=== PATIENT | female | born 1985 | race Caucasian/White ===

== ENCOUNTER 2019-09-06 07:39 | Inpatient (IN) ==
[2019-09-06] MEDS ORDERED: OXYTOCIN 30 UNITS/500 ML BAG IV PRN ×3 (07:48→18:54)
[2019-09-06] MEDS: LACTATED RINGER'S 1,000 ML IV PRN ×3 (08:09→15:55)
--- NOTE | 2019-09-06 08:29 | History & Physical Report ---
Date of Service September 06, 2019 Assessment & Plan (1) Post-term : - Induction of labor with mechanical dilatation and pitocin administration per protocol. (2) Abnormal placenta affecting management of mother: - Noted as placental shelf on 07/04/19 ultrasound. Good growth. History of Present Illness Primary Care Provider: NO PCP Kristine is a 33 y/o female at 41 weeks by LMP (10/29/18) EDC 08/29/19; Comes in today for induction of labor due to postterm . The was remarkable for placental shelf noted by ultrasound, which was of no clinical significance. Had a reactive NST on 09/04. She had a cobb bulb placed on 09/05/19 for mechanical dilatation. Attended regular OB appointments. The patient is having contractions, which she can breathe and talk through. Labs: (09/06/19) Blood type: O positive (01/13/19) Antibody screen: Neg (01/13/19) H.5 Hct: 36.1 WBC: 10.67 Plt: 162 Rubella: Neg VDRL/RPR: Nonreactive Gonorrhea: Neg Chlamydia: Neg HIV: Neg Hep B: Neg HbSAg: Neg CF: Neg SMA: Neg GBS Neg Glucose 1 Hour 50 gm Load 92 mg/dl (06/06/19) & 116 (03/14/19) Allergies Allergy/AdvReac Type Severity Reaction Status Date / Time No Known Drug Allergies Allergy none Verified 09/06/19 07:48 Home Medications Home Medications Medication Instructions Recorded Confirmed Type vit no.089-hsgc-newem 1 tab PO DAILY 09/05/19 09/06/19 History [ Vitamin] Patient History Medical History Encounter for anatomic survey Hx of varicella No pertinent family history No pertinent past medical history Surgical History No pertinent past surgical history S/P wisdom tooth extraction [place] teeth removed Family History Mother Hypertension Father Diabetes Social History (Updated 01/07/19 @ 14:17 by Felicitas Johnson) Preferred Language: [place] Islander Communication Ability: Effective Food Beverage Attendant Required: No Beliefs That Will Affect Care: None marital status: marital status details: Emmanuel Humphreys ([phone] Current Living Situation: Spouse Current Living Situation Comment: lives with spouse, no pets current occupational status: employed current occupation: Teacher, [employer] Other Information That Helps Us Care for You: No Feels Safe at Home: Yes Safety Concerns: Feels Safe At This Time Smoking Status: Never smoker Second Hand Exposure: No ; Hx Alcohol Use: No (light) Hx Substance Use: No Physical Activity Frequency: 3-4 Times per Week Physical Activity Frequency Comment: for 1 hr Review of Systems Constitutional: denies fever, chills, sweat, headache Respiratory: denies shortness of breath, difficulty breathing Cardiac: denies chest pain, palpitations, chest pressure Breast: denies breast pain : denies dysuria Physical Exam Constitutional: WD/WN, vitals as above Respiratory: normal respiratory effort, lungs clear to auscultation Cardiovascular: RRR, no murmur, no edema Gastrointestinal (Abdomen): Gravid; FH: term; positive FHTs; EFW: 8lb; Vertex position; positive palpation of contractions. Psychiatric: A+Ox3, euthymic affect Genitourinary: Manual OB Exam: + cervical dilation 4 cm, + cervical effacement (75%) and + station -2 OB Exam Monitor Tracing: + external FHT monitor used, + external uterine monitor used, + category I and + normal FHT variability per Dr. Breaux Results & Data Vital Signs (Past 12 Hours) Vital Signs Temp Pulse Resp BP 09/06/19 07:44 77 121/82 09/06/19 07:43 36.7 C 20 Code Status & VTE Plan VTE Prophylaxis Plan VTE Prophylaxis will be ordered: Yes Supervising Physician Co-Signing Physician Notes Resident Physician Supervision Note: I was present with Dr. Steel during the history and exam. I discussed the case with the resident and agree with the findings and plan as documented in the note. Any exceptions or clarifications are listed here: at 41 weeks for postdates induction, plan pitocin and anticipate Documented By: Miles Breaux Jr, MD, FACOG
[2019-09-06 08:39] LABS: Hematocrit (blood only) 36.1 % (37-47); Hemoglobin 12.5 g/dL (12.0-16.0); Mean Corpuscular Hemoglobin 29.6 pg (25-34); Mean Corpuscular Volume 85.5 fL (80-100); Mean Platelet Volume 9.8 fL (7.4-10.4); Platelet Count 162 K/uL (130-400); RDW Coefficient of Variation 13.3 % (11.5-14.5); RDW Standard Deviation 41.5 fL (36.4-46.3); Red Blood Count 4.22 M/uL (4.2-5.4); White Blood Count 10.67 K/uL (4.8-10.8)
[2019-09-06 08:47] LABS: Mean Corpuscular Hgb Conc 34.6 g/dL (32-36)
[2019-09-06] MEDS ORDERED: ePHEDrine sulfate 50 MG/ML AMP ONE (11:07)
[2019-09-06] MEDS ORDERED: BUPIVACAINE 0.25% 30 ML VIAL ONE (11:08)
[2019-09-06] MEDS ORDERED: fentaNYL 2MCG/ML ROPIV 1.25MG/ML 100 ML BAG EPI ONE (11:08)
[2019-09-06] MEDS ORDERED: fentaNYL citrate 100 MCG/2 ML VIAL ONE (11:08)
--- NOTE | 2019-09-06 11:22 | Anesthesiology Consultation ---
Date of Service September 06, 2019 Assessment & Plan (1) Encounter for pre-operative examination: Chart Review Chart Review: Acceptable Risk for Labor Epidural History Height/Weight Height: 5 ft 2 in Weight: 81.647 kg Allergies Allergy/AdvReac Type Severity Reaction Status Date / Time No Known Drug Allergies Allergy none Verified 09/06/19 07:48 Medications Home Medications Medication Instructions Recorded Confirmed Last Taken vit no.263-jrdw-aarhv 1 tab PO DAILY 09/05/19 09/06/19 09/05/19 10:00 [ Vitamin] Active Medications Generic Name Dose Route Start Last Admin Trade Name Freq PRN Reason Stop Dose Admin Lactated Ringer's 1,000 mls @ 125 mls/hr 09/06/19 07:48 09/06/19 11:13 Lr IV 09/08/19 07:47 999 mls/hr .Q8H PRN Infusion L&D Protocol Protocol Oxytocin 30 units in 500 mls @ 9 mls/hr 09/06/19 07:48 09/06/19 11:00 Pitocin IV 09/08/19 07:47 0.54 units/hr .Q24H PRN 9 mls/hr Labor Induction/Augmentation Titration Protocol 0.54 UNITS/HR Past Medical History Medical History Encounter for anatomic survey Hx of varicella No pertinent family history No pertinent past medical history Past Family History Family History Mother Hypertension Father Diabetes Past Surgical History Surgical History No pertinent past surgical history S/P wisdom tooth extraction [place] teeth removed Social History Smoking Status: Never smoker Hx Alcohol Use: No (light) Hx Substance Use: No Physical Exam Vital Signs Last Vital Signs Temp 36.6 C 09/06/19 11:04 Pulse 75 09/06/19 11:20 Resp 20 09/06/19 11:04 BP 128/95 09/06/19 11:04 Pulse Ox 98 09/06/19 11:20 Testing Laboratory Results 09/06/19 08:27
[2019-09-06] MEDS ORDERED: fentaNYL 2MCG/ML ROPIV 1.25MG/ML 100 ML BAG EPI PRN (11:49)
[2019-09-06] MEDS ORDERED: ePHEDrine sulfate 50 MG/ML AMP IV PRN (11:49)
[2019-09-06] MEDS ORDERED: ONDANSETRON INJ 2 MG/ML 2 ML VIAL IV PRN (11:49)
[2019-09-06] MEDS ORDERED: NALOXONE HCL 1 MG in SODIUM CHLORIDE 0.9% 1000ML 1,000 ML IV PRN (11:49)
[2019-09-06] MEDS ORDERED: NALOXONE HCL 0.4 MG/1 ML VIAL/CARP IV PRN (11:49)
--- NOTE | 2019-09-06 13:09 | Labor Progress Brief Note ---
Date of Service September 06, 2019 Subjective Reason For Note: Routine Evaluation Assessment & Plan (1) Post-term : - tracing Cat II, moderate variability with accels - pt comfortable with epidural - continue induction Admission and Anticipated Discharge Date Admission Date: September 06, 2019 Physical Exam Genitourinary: Cervix: 6/80/-2, AROM, clear, IUPC placed Results & Data ([facility]) Vital Signs (Past 12 Hours) Vital Signs Temp Pulse Resp BP Pulse Ox 09/06/19 13:05 70 95 09/06/19 13:01 81 98/60 L 09/06/19 13:00 65 97 09/06/19 12:55 64 97 09/06/19 12:50 70 97 09/06/19 12:45 75 105/65 97 09/06/19 12:44 81 104/62 09/06/19 12:42 66 109/69 09/06/19 12:40 65 108/64 97 09/06/19 12:38 77 108/66 09/06/19 12:36 71 106/71 09/06/19 12:35 69 99 09/06/19 12:34 62 106/63 09/06/19 12:32 75 108/65 09/06/19 12:30 66 20 108/65 100 09/06/19 12:28 67 105/66 09/06/19 12:26 71 104/65 09/06/19 12:25 71 100 09/06/19 12:24 67 102/66 09/06/19 12:22 57 L 90/60 L 09/06/19 12:20 62 88/57 L 100 09/06/19 12:18 62 94/61 L 09/06/19 12:16 58 L 91/54 L 09/06/19 12:15 58 L 99 09/06/19 12:14 68 90/51 L 09/06/19 12:12 97.7 F 66 20 90/55 L 09/06/19 12:10 67 91/54 L 95 09/06/19 12:08 70 94/54 L 09/06/19 12:07 61 104/75 09/06/19 12:05 66 94 09/06/19 12:02 74 110/75 09/06/19 12:00 68 20 107/64 97 09/06/19 11:58 69 108/70 09/06/19 11:56 67 109/69 09/06/19 11:55 69 20 96 09/06/19 11:54 70 114/78 93 09/06/19 11:52 70 110/75 09/06/19 11:50 69 113/75 97 09/06/19 11:48 69 111/73 09/06/19 11:46 71 126/89 09/06/19 11:45 72 99 09/06/19 11:44 63 20 125/84 09/06/19 11:40 81 97 09/06/19 11:35 78 96 09/06/19 11:30 79 99 09/06/19 11:25 77 100 09/06/19 11:20 75 98 09/06/19 11:04 97.9 F 78 20 128/95 09/06/19 10:01 90 111/74 09/06/19 08:56 75 122/79 09/06/19 07:44 77 121/82 09/06/19 07:43 98.1 F 20 Coding Level of Care Code None Diagnoses Post-term O48.0
--- NOTE | 2019-09-06 18:24 | Delivery Summary ---
Vaginal Delivery Summary Date of Service September 06, 2019 Vaginal Delivery Summary Findings: Viable female with Apgars of 9 and 10. Baby delivered over a midline second-degree laceration. Cord gases and cord blood samples obtained. Placenta delivered spontaneously and sent for pathological evaluation. Estimated blood loss 300 cc Labor note: Kristine is a 33 y/o female at 41 weeks by LMP (10/29/18) EDC 08/29/19; Comes in today for induction of labor due to postterm . The was remarkable for placental shelf noted by ultrasound, which was of no clinical significance. Had a reactive NST on 09/04. She had a cobb bulb placed on 09/05/19 for mechanical dilatation. Attended regular OB appointments. The patient is having contractions, which she can breathe and talk through. Labs: (09/06/19) Blood type: O positive (01/13/19) Antibody screen: Neg (01/13/19) H.5 Hct: 36.1 WBC: 10.67 Plt: 162 Rubella: Neg VDRL/RPR: Nonreactive Gonorrhea: Neg Chlamydia: Neg HIV: Neg Hep B: Neg HbSAg: Neg CF: Neg SMA: Neg GBS Neg Glucose 1 Hour 50 gm Load 92 mg/dl (06/06/19) & 116 (03/14/19) Upon admission the cervical Cobb catheter was removed and the cervix was 3 to 4 cm dilated 50% effaced and -2 station. Pitocin was initiated per induction protocol. Patient progressed into a regular labor pattern and anesthesia was consulted and an epidural was placed. The patient progressed to 6 cm and had artificial rupture of membranes for clear fluid. Intrauterine pressure catheter was placed and Pitocin was titrated to achieve adequate labor. Patient progressed to full dilatation and began her second stage. She pushed for approximately 30 minutes delivering the viable female infant. Cord blood samples and cord gas samples were obtained. Placenta was delivered spontaneously and sent for pathological evaluation. Inspection of the perineum showed a midline second-degree laceration. This was repaired with 4-0 Vicryl. Estimated blood loss was 300 cc. Sponge and needle count was correct.
[2019-09-06 18:33] LABS: Base Excess Cord Arterial Bld -2.6 mEq/L (-9-1.8); CO2 Cord Arterial Blood 50 mmHg (39.1-73.5); HCO3 Cord Arterial Blood 24 mmol/L (19.7-28.5); PO2 Cord Arterial Blood 24 mmHg (4.1-31.7)
[2019-09-06 18:41] LABS: Base Excess Cord Venous Blood -1.3 mEq/L (-7.7-1.9); Cord Venous Blood HCO3 23 mmol/L (18.4-26.8); Cord Venous Blood PCO2 37 mmHg (30.4-57.2); Cord Venous Blood PO2 30 mmHg (14.1-43.3); Cord Venous Blood pH 7.41 (7.20-7.44)
[2019-09-06 18:42] LABS: Oxygen Sat Cord Arterial Blood < 60.0 % (<60)
[2019-09-06] MEDS ORDERED: ACETAMINOPHEN W/CODEINE #3 1 TAB PO PRN (18:54)
[2019-09-06] MEDS ORDERED: DIPHTHERIA/TETANUS/PERTUSSIS 0.5 ML SYR/VIAL IM ONE (18:54)
[2019-09-06] MEDS ORDERED: SUPERCREAM 0.870% 15 GM JAR EXT PRN (18:54)
[2019-09-06] MEDS ORDERED: ACETAMINOPHEN 325 MG TAB PO PRN (18:54)
[2019-09-06] MEDS ORDERED: BENZOCAINE 20% AER SPR 82.5 GM CAN EXT PRN (18:54)
[2019-09-06] MEDS ORDERED: HYDROCORTISONE ACETATE 25 MG SUPP PR PRN (18:54)
--- NOTE | 2019-09-06 18:58 | Anesthesia Procedure Note ---
Date of Service September 06, 2019 Anesthesia Post Epidural Note Vital Signs Vital Signs: Temp Pulse Resp BP Pulse Ox 36.7 C 75 20 116/65 98 09/06/19 16:00 09/06/19 18:47 09/06/19 18:45 09/06/19 18:47 09/06/19 18:10 Pain Intensity Abdomen: Pain Intensity: 0 Notes Mental Status: alert / awake / arousable and participated in evaluation Nausea / Vomiting: adequately controlled Pain: adequately controlled Airway Patency, RR, SpO2: stable & adequate BP & HR: stable & adequate Hydration State: stable & adequate Neuraxial Anesthesia: was administered and sensory block is resolving Anesthetic Complications: no major complications apparent Epidural: Removed without complications and With tip intact
[2019-09-06] MEDS: IBUPROFEN 600 MG TAB PO PRN (19:29)
[2019-09-06] MEDS: DOCUSATE SODIUM 100 MG CAP PO SCH (20:42)
--- NOTE | 2019-09-07 07:19 | Obstetrical Progress Note ---
Date of Service <Gagan Bhatia MD - Last Filed: 09/07/19 07:19> September 07, 2019 Assessment & Plan <Gagan Bhatia MD - Last Filed: 09/07/19 07:19> (1) Post-term : PPD #1 Doing well, ambulating well, voiding well, tolerating oral intake. Continue routine care. After discharge will have follow-up in 6 weeks. Subjective <Gagan Bhatia MD - Last Filed: 09/07/19 07:19> Kristine is a 33 y/o female ; PPD #1 following spontaneous vaginal delivery at 41 weeks; doing well this morning; light abdominal cramping & 2/10 pain well managed with analgesics; voiding well; tolerating meals overnight and able to ambulate some; some persistent spotting with improvement this morning. Review of Systems Constitutional: denies fever, chills, sweat, headache Respiratory: denies shortness of breath, difficulty breathing Cardiac: denies chest pain, palpitations, chest pressure Breast: denies breast pain : denies dysuria Physical Exam <Gagan Bhatia MD - Last Filed: 09/07/19 07:19> General: Alert, oriented. No acute distress. Cardiac: Regular rate and rhythm, no murmurs/rubs/gallops. Respiratory: Clear to auscultation bilaterally a/p, no wheezes/rales/rhonchi. No increased work of breathing. Symmetrical chest rise. No respiratory distress. Abdomen: Soft, nontender, nondistended. Bowel sounds present. Uterus: Uterine fundus firm, palpable 1cm below umbilicus. Lower Extremities: No lower extremity edema or swelling. No deep calf pain. Elenita's negative bilaterally. Results & Data <Gagan Bhatia MD - Last Filed: 09/07/19 07:19> Vital Signs (Past 12 Hours) Vital Signs Temp Pulse Pulse Resp BP BP Pulse Ox 09/07/19 04:30 36.7 C 63 18 116/75 09/06/19 23:30 36.6 C 66 18 101/65 09/06/19 20:45 36.8 C 82 20 102/66 98 09/06/19 20:15 36.9 C 93 H 16 111/72 09/06/19 20:00 88 109/76 09/06/19 19:45 94 H 18 111/79 09/06/19 19:30 92 H 111/75 <Miles Breaux Jr, MD, FACOG - Last Filed: 09/07/19 07:52> Co-Signing Physician Notes Resident Physician Supervision Note: I was present with Dr. Chanel during the history and exam. I discussed the case with the resident and agree with the findings and plan as documented in the note. Any exceptions or clarifications are listed here: Doing well, discussed delivery, routine care. Documented By: Miles Breaux Jr, MD, FACOG
[2019-09-07] MEDS: DOCUSATE SODIUM 100 MG CAP PO SCH ×2 (08:59→21:31)
[2019-09-07] MEDS: PRENATAL VITAMIN 1 TAB PO SCH (08:59)
[2019-09-07] MEDS: FERROUS SULFATE 325 MG TAB PO SCH (08:59)
[2019-09-07] MEDS: IBUPROFEN 600 MG TAB PO PRN (09:02)
[2019-09-07] MEDS ORDERED: bisacodyL 5 MG TABEC PO SCH (20:00)
[2019-09-08 06:03] LABS: Hematocrit (blood only) 33.4 % (37-47)
--- NOTE | 2019-09-08 06:30 | Obstetrical Progress Note ---
Date of Service <Gagan Bhatia MD - Last Filed: 09/08/19 07:18> September 08, 2019 Assessment & Plan <Gagan Bhatia MD - Last Filed: 09/08/19 07:18> (1) Post-term : PPD #2 Doing well, ambulating well, voiding well, tolerating oral intake. Continue routine care. After discharge will have follow-up in 6 weeks. Subjective <Gagan Bhatia MD - Last Filed: 09/08/19 07:18> Kristine is a 33 y/o female ; PPD #2 following spontaneous vaginal delivery at 41 weeks; doing well this morning; light abdominal cramping & 2/10 pain well managed on analgesics; voiding well; tolerating meals overnight and able to ambulate some; some persistent spotting with some improvement this morning. She says she is ready to go home today. Review of Systems Constitutional: denies fever, chills, sweat, headache Respiratory: denies shortness of breath, difficulty breathing Cardiac: denies chest pain, palpitations, chest pressure Breast: denies breast pain : denies dysuria Physical Exam <Gagan Bhatia MD - Last Filed: 09/08/19 07:18> General: Alert, oriented. No acute distress. Cardiac: Regular rate and rhythm, no murmurs/rubs/gallops. Respiratory: Clear to auscultation bilaterally a/p, no wheezes/rales/rhonchi. No increased work of breathing. Symmetrical chest rise. No respiratory distress. Abdomen: Soft, nontender, nondistended. Bowel sounds present. Uterus: Uterine fundus firm, palpable 2cm below umbilicus. Lower Extremities: No lower extremity edema or swelling. No deep calf pain. Elenita's negative bilaterally. Results & Data <Gagan Bhatia MD - Last Filed: 09/08/19 07:18> Vital Signs (Past 12 Hours) Vital Signs Temp Pulse Resp BP 09/07/19 20:30 36.7 C 93 H 16 122/80 <Miguel Keene MD, FACOG - Last Filed: 09/08/19 07:51> Co-Signing Physician Notes Resident Physician Supervision Note: I was present with Dr. Farah during the history and exam. I discussed the case with the resident and agree with the findings and plan as documented in the note. Any exceptions or clarifications are listed here: [None] Documented By: Miguel Keene MD, FACOG Resident Activity Tracking <Gagan hBatia MD - Last Filed: 09/08/19 07:18> Resident Involvement: Resident Care Provided Care Provided: OB Delivery
[2019-09-08] MEDS: DOCUSATE SODIUM 100 MG CAP PO SCH (08:05)
[2019-09-08] MEDS: FERROUS SULFATE 325 MG TAB PO SCH (08:06)
[2019-09-08] MEDS: PRENATAL VITAMIN 1 TAB PO SCH (08:06)
== END 2019-09-08 16:30 | disposition home or self-care (01) | DRG 807 ==
LOC: 4S1 07:39 → 4S2 20:35

== ENCOUNTER 2021-07-27 01:20 | Inpatient (IN) ==
[2021-07-27] MEDS ORDERED: ePHEDrine sulfate 50 MG/ML AMP ONE (02:00)
[2021-07-27] MEDS ORDERED: fentaNYL citrate 100 MCG/2 ML VIAL ONE (02:00)
[2021-07-27] MEDS ORDERED: BUPIVACAINE 0.25% 30 ML VIAL ONE (02:00)
[2021-07-27] MEDS ORDERED: SODIUM CHLORIDE 0.9% INJ 10 ML VIAL ONE (02:00)
[2021-07-27] MEDS ORDERED: fentaNYL 2MCG/ML ROPIVACAINE 1.25MG/ML 100 ML BAG EPI ONE (02:01)
[2021-07-27] MEDS: LACTATED RINGER'S 1,000 ML IV PRN ×2 (02:05→03:05)
[2021-07-27] MEDS ORDERED: ONDANSETRON INJ 2 MG/ML 2 ML VIAL IV PRN (02:08)
[2021-07-27] MEDS ORDERED: ePHEDrine sulfate 50 MG/ML AMP IV PRN (02:08)
[2021-07-27] MEDS ORDERED: NALBUPHINE HCL INJ 10 MG/ML AMP IV PRN (02:08)
[2021-07-27] MEDS ORDERED: NALOXONE HCL 1 MG in SODIUM CHLORIDE 0.9% 1000ML 1,000 ML IV PRN (02:08)
[2021-07-27] MEDS ORDERED: diphenhydrAMINE 50 MG/ML VIAL IV PRN (02:08)
[2021-07-27] MEDS ORDERED: fentaNYL 2MCG/ML ROPIVACAINE 1.25MG/ML 100 ML BAG EPI PRN (02:08)
[2021-07-27] MEDS ORDERED: NALOXONE HCL 0.4 MG/1 ML VIAL/CARP IV PRN (02:08)
--- NOTE | 2021-07-27 02:10 | Anesthesiology Consultation ---
Date of Service July 27, 2021 Assessment & Plan (1) Encounter for pre-operative examination: Chart Review Chart Review: Patient NOT seen in Pre Admission Testing and Acceptable Risk for Labor Epidural Consults Requested none History Height/Weight Height: 5 ft 2 in Weight: 83.007 kg Allergies Allergy/AdvReac Type Severity Reaction Status Date / Time No Known Drug Allergies Allergy none Verified 07/27/21 01:44 Medications Home Medications Medication Instructions Recorded Confirmed Last Taken vits no.124-ferrous fum 1 tab PO DAILY 09/05/19 07/27/21 07/26/21 27 mg iron-folic acid 800 mcg tablet ( Vitamin) Past Medical History Medical History Abnormal placenta affecting management of mother Encounter for anatomic survey Encounter for pre-operative examination Hx of varicella No pertinent family history No pertinent past medical history Post-term Supervision of normal intrauterine in primigravida Exercise / Class Metabolic Activity II 4-5 Yardwork/Stairs/Walk up hill Past Family History Family History Mother Hypertension Father Diabetes Grandfather (Paternal) Prostate cancer Grandfather (Maternal) Prostate cancer Denies family history of Ovarian cancer Myocardial infarction Breast cancer Colorectal cancer Past Surgical History Surgical History No pertinent past surgical history S/P wisdom tooth extraction [place] teeth removed Past Anesthesia History No Hx of Anesthesia Complications and No Family Hx of Anesthesia Complications History of PONV No Hx of PONV and No Hx of Motion Sickness Social History Smoking Status: Never smoker Hx Alcohol Use: No (light) Hx Substance Use: No Physical Exam Vital Signs Last Vital Signs Temp 36.4 C L 07/27/21 01:46 Pulse 76 07/27/21 02:09 Resp 18 07/27/21 01:46 BP 122/73 07/27/21 01:37 Pulse Ox 95 07/27/21 02:09
[2021-07-27 02:25] LABS: Hemoglobin 13.1 g/dL (12.0-16.0); Mean Corpuscular Hemoglobin 30.5 pg (25-34); Mean Corpuscular Hgb Conc 35.4 g/dL (32-36); Mean Corpuscular Volume 86.2 fL (80-100); Mean Platelet Volume 10.1 fL (7.4-10.4); Platelet Count 185 K/uL (130-400); RDW Coefficient of Variation 13.9 % (11.5-14.5); RDW Standard Deviation 43.7 fL (36.4-46.3); Red Blood Count 4.29 M/uL (4.2-5.4); White Blood Count 10.73 K/uL (4.8-10.8)
--- NOTE | 2021-07-27 03:07 | History & Physical Report ---
Date of Service July 27, 2021 Assessment & Plan (1) Encounter for supervision of normal in multigravida, antepartum: Plan: IUP at term in active labor GBS -neg epidural requested on admission anticipate vaginal Admission and Anticipated Discharge Date Admission Date: July 27, 2021 History of Present Illness Primary Care Provider: NO PCP Patient is a 35 yo female EDC 07/26/21 who presents at 40 1/7 weeks with regular contractions for the last 2 hours. No SPROM or bloody show. She had been having irregular contractions for most of the day today. has been uncomplicated. GBS - Negative Allergies Allergy/AdvReac Type Severity Reaction Status Date / Time No Known Drug Allergies Allergy none Verified 07/27/21 01:44 Home Medications Medication Instructions Recorded Confirmed Type vits no.124-ferrous fum 1 tab PO DAILY 09/05/19 07/27/21 History 27 mg iron-folic acid 800 mcg tablet ( Vitamin) Patient History Medical History Abnormal placenta affecting management of mother Encounter for anatomic survey Encounter for pre-operative examination Hx of varicella No pertinent family history No pertinent past medical history Post-term Supervision of normal intrauterine in primigravida Surgical History No pertinent past surgical history S/P wisdom tooth extraction [place] teeth removed Family History Mother Hypertension Father Diabetes Grandfather (Paternal) Prostate cancer Grandfather (Maternal) Prostate cancer Denies family history of Ovarian cancer Myocardial infarction Breast cancer Colorectal cancer Social History (Updated 11/28/20 @ 14:25 by Irasema Dennis) Smoking Status: Never smoker Second Hand Exposure: No; Hx Alcohol Use: No (light) Hx Substance Use: No Preferred Language: Pashto Communication Ability: Effective Shoe Fitter Required: No Beliefs That Will Affect Care: None marital status: marital status details: Emmanuel Humphreys (35) [phone] Current Living Situation: Spouse Current Living Situation Comment: House with and daughter current occupational status: employed current occupation: Teacher, [employer] Other Information That Helps Us Care for You: No Feels Safe at Home: Yes Safety Concerns: Feels Safe At This Time Physical Activity Frequency: 3-4 Times per Week Physical Activity Frequency Comment: for 1 hr Assistive Devices: None Review of Systems All systems reviewed & are unremarkable except as noted in HPI & below Physical Exam Constitutional: WD/WN, vitals as above Psychiatric: A+Ox3, euthymic affect Genitourinary: OB Exam Abdomen: + vertex, + estimated weight (7-8 pounds) and + regular contractions (Q 4-5 minutes- moderate) Manual OB Exam: + cervical dilation 7 cm, + cervical effacement 10% and + station -2 Results & Data ([facility]) Vital Signs (Past 12 Hours) Vital Signs Temp Pulse Resp BP Pulse Ox 07/27/21 02:59 70 107/70 07/27/21 02:58 64 102/61 07/27/21 02:56 68 99 07/27/21 02:53 65 110/62 07/27/21 02:51 65 110/72 07/27/21 02:49 69 107/63 99 07/27/21 02:47 74 115/70 07/27/21 02:45 70 94/64 L 07/27/21 02:44 72 97 07/27/21 02:43 75 96/61 L 07/27/21 02:41 75 111/75 07/27/21 02:39 75 107/67 100 07/27/21 02:37 81 114/73 07/27/21 02:34 86 99 07/27/21 02:29 86 100 07/27/21 02:24 78 95 07/27/21 02:19 79 96 07/27/21 02:18 79 94 07/27/21 02:14 78 95 07/27/21 02:09 76 95 07/27/21 01:46 97.5 F L 18 07/27/21 01:37 97.5 F L 76 18 122/73 Code Status & VTE Plan VTE Prophylaxis Plan VTE Prophylaxis will be ordered: No Coding Level of Care Code None Diagnoses Encounter for supervision of normal in multigravida, antepartum Z34.80
[2021-07-27] MEDS: OXYTOCIN 30 UNITS/500 ML BAG IV PRN ×2 (04:07→04:39)
[2021-07-27] MEDS ORDERED: bisacodyL 10 MG SUPP PR PRN (04:26)
[2021-07-27] MEDS ORDERED: HYDROCORTISONE ACETATE 25 MG SUPP PR PRN (04:26)
[2021-07-27] MEDS ORDERED: oxyCODONE/ACETAMINOPHEN 5mg/325mg TAB PO PRN (04:26)
[2021-07-27] MEDS ORDERED: ACETAMINOPHEN 325 MG TAB PO PRN (04:26)
[2021-07-27] MEDS ORDERED: DIPHTHERIA/TETANUS/PERTUSSIS 0.5 ML SYR/VIAL IM ONE (04:26)
[2021-07-27] MEDS ORDERED: OXYTOCIN 30 UNITS/500 ML BAG IV PRN (04:26)
[2021-07-27] MEDS ORDERED: BENZOCAINE 20% AER SPR 82.5 GM CAN EXT PRN (04:26)
[2021-07-27] MEDS: IBUPROFEN 600 MG TAB PO PRN ×3 (04:39→22:24)
--- NOTE | 2021-07-27 04:56 | Delivery Summary ---
Vaginal Delivery Summary Date of Service July 27, 2021 Vaginal Delivery Summary and 1st Degree LAC Patient is a 35-year-old 2 para 1-0-0-1 female EDC of 07/26/2021 who presents at 40-1/7 weeks in active labor. She requested epidural analgesia which was moderately effective. Amniotic membranes were ruptured for clear fluid at 7 cm dilated. She progressed quickly to full dilation. She pushed effectively through 2 contractions for delivery of a viable male infant over intact perineum. There was a tight nuchal cord and this was clamped and cut prior to delivery device the infant. The infant was placed on the mother's abdomen for further attention and drying. He was spontaneously crying and moving all 4 limbs. After cord blood was obtained, the placenta was expressed intact with a three-vessel cord. First-degree perineal laceration was repaired with 3-0 chromic in the usual fashion. Estimated blood loss was 200 cc. bleeding was controlled with dilute Pitocin and fundal massage. Mother and baby were doing well post delivery. [facility] Vaginal Delivery Charge Delivery Type Details: and 1st Degree LAC
[2021-07-27] MEDS: DOCUSATE SODIUM 100 MG CAP PO SCH ×2 (09:19→20:21)
[2021-07-27] MEDS: PRENATAL VITAMIN 1 TAB PO SCH (09:19)
[2021-07-28] MEDS: IBUPROFEN 600 MG TAB PO PRN ×2 (02:35→07:45)
--- NOTE | 2021-07-28 07:14 | Obstetrical Progress Note ---
Date of Service July 28, 2021 Assessment & Plan (1) Vaginal delivery: Doing well. Plan d/c home. Instructions given. Day #:: 1 Subjective Ambulation: ambulating normally Voiding: no voiding problems Passing Gas:: Yes Diet Tolerance:: regular diet Lochia:: Small Feeding Type:: breast feeding Physical Exam Constitutional WD/WN, vitals as above Cardiovascular Extremities: no calf tenderness and no edema Gastrointestinal (Abdomen) soft, nt, nd, ff/nt 1 below u Results & Data ([facility]) Vital Signs (Past 12 Hours) Vital Signs Temp Pulse Resp BP Pulse Ox 07/27/21 23:05 36.4 C L 63 16 116/78 97 07/27/21 20:12 36.5 C 76 20 111/70
[2021-07-28 07:21] LABS: Hematocrit (blood only) 36.6 % (37-47); Hemoglobin 12.1 g/dL (12.0-16.0); Mean Corpuscular Hemoglobin 28.8 pg (25-34); Mean Corpuscular Hgb Conc 33.1 g/dL (32-36); Mean Corpuscular Volume 87.1 fL (80-100); Mean Platelet Volume 10.3 fL (7.4-10.4); Platelet Count 202 K/uL (130-400); RDW Coefficient of Variation 14.4 % (11.5-14.5); RDW Standard Deviation 45.4 fL (36.4-46.3); White Blood Count 9.92 K/uL (4.8-10.8)
[2021-07-28] MEDS: PRENATAL VITAMIN 1 TAB PO SCH (07:45)
[2021-07-28] MEDS: DOCUSATE SODIUM 100 MG CAP PO SCH (07:45)
[2021-07-28] MEDS ORDERED: bisacodyL 5 MG TABEC PO SCH (20:00)
== END 2021-07-28 12:55 | disposition home or self-care (01) | DRG 807 ==
LOC: OPB 01:20 → 4S1 01:21 → 4E2 07:51

== ENCOUNTER 2024-01-04 02:09 | Inpatient (IN) ==
[2024-01-04] MEDS ORDERED: LIDOCAINE 1% LOCAL 20 ML VIAL INFIL PRN (02:51)
--- NOTE | 2024-01-04 02:59 | History & Physical Report ---
Date of Service January 04, 2024 Assessment & Plan (1) Normal labor: Plan: admit, iv, labs. epidural when desires. ts categ 1. History of Present Illness Chief Complaint: vaginal bleeding in Primary Care Provider: NO PCP 38yo at 40+wks malinda presents to with early labor. Patient called and noted at 1250 a strong ctx and then some bleeding. Came to LD and was 4cm. No rom. Bloody show per nurse. PNC c/b 1. ama PNL rh pos, ri, gbs neg OBH: x 2 GYNH: nl paps no stds Allergies Allergy/AdvReac Type Severity Reaction Status Date / Time No Known Drug Allergies Allergy none Verified 12/29/23 15:28 Home Medications Medication Instructions Recorded Confirmed Type 21-iron fu-folic acid PO 05/06/23 12/29/23 History [ Complete] Patient History Medical History Spontaneous vaginal delivery 08/2019 [facility] Encounter for pre-operative examination Hx of varicella Surgical History S/P wisdom tooth extraction Family History Mother Hypertension Father Diabetes Grandfather (Paternal) Prostate cancer Grandfather (Maternal) Prostate cancer Denies family history of Ovarian cancer Myocardial infarction Breast cancer Colorectal cancer Social History (Updated 05/06/23 @ 13:07 by Janell Schuster) Smoking Status: Never smoker Second Hand Exposure: No; Do You Dip or Chew Tobacco: No; Tobacco Cessation Education Requested by Patient: No Hx Alcohol Use: No (light) Hx Substance Use: No Preferred Language: Belarusian Communication Ability: Effective Visual Impairment: No Limitations Hearing Ability: Normal Boiler Testing Technician Required: No Beliefs That Will Affect Care: None marital status: marital status details: Emmanuel Humphreys (37) [phone] Current Living Situation: Alone and Family Current Living Situation Comment: and children current occupational status: employed current occupation: Teacher, [employer] Other Information That Helps Us Care for You: No Feels Safe at Home: Yes Safety Concerns: Feels Safe At This Time Physical Activity Frequency: 3-4 Times per Week Physical Activity Frequency Comment: for 1 hr Assistive Devices: None Review of Systems as per Subjective / HPI Physical Exam Constitutional: WD/WN, vitals as above Psychiatric: A+Ox3, euthymic affect Genitourinary: Manual OB Exam: + cervical dilation 4 cm OB Exam Monitor Tracing: + external FHT monitor used, + external uterine monitor used (q3-4), + category I and + normal FHT variability Results & Data Vital Signs (Past 12 Hours) Vital Signs Pulse BP 01/04/24 02:33 91 H 124/84 Code Status & VTE Plan VTE Prophylaxis Plan VTE Prophylaxis will be ordered: No Reason for no VTE drug order: Treatment not indicated Coding Level of Care Code None Diagnoses Normal labor O80; Z37.9
[2024-01-04] MEDS: LACTATED RINGER'S 1,000 ML IV SCH (03:03)
[2024-01-04 03:25] LABS: Hematocrit (blood only) 37.4 % (37.0-47.0); Hemoglobin 12.9 g/dl (12.0-16.0); Mean Corpuscular Hemoglobin 30.2 pg (25.0-34.0); Mean Corpuscular Hgb Conc 34.5 g/dL (32.0-36.0); Mean Corpuscular Volume 87.6 fL (80.0-100.0); Mean Platelet Volume 10.4 fL (9.4-12.4); Platelet Count 145 K/uL (130-400); RDW Coefficient of Variation 13.6 % (11.5-14.5); RDW Standard Deviation 43.8 fL (36.4-46.3); Red Blood Count 4.27 M/uL (4.20-5.40)
[2024-01-04] MEDS ORDERED: fentaNYL citrate PF 100 MCG/2 ML VIAL EPI PRN (03:50)
[2024-01-04] MEDS ORDERED: NALBUPHINE HCL INJ 10 MG/ML AMP IV PRN (03:50)
[2024-01-04] MEDS ORDERED: NALOXONE HCL 0.4 MG/1 ML VIAL/CARP IV PRN (03:50)
[2024-01-04] MEDS ORDERED: diphenhydrAMINE 50 MG/ML VIAL IV PRN (03:50)
[2024-01-04] MEDS ORDERED: BUPIVACAINE 0.25% PF 30 ML VIAL EPI PRN (03:50)
[2024-01-04] MEDS ORDERED: NALOXONE HCL 1 MG in SODIUM CHLORIDE 0.9% 1,000 ML IV PRN (03:50)
[2024-01-04] MEDS ORDERED: ROPIVACAINE 0.5% PF 5 MG/ML 20 ML VIAL EPI PRN (03:50)
[2024-01-04] MEDS ORDERED: LIDOCAINE 2% MPF LOCAL 5 ML VIAL EPI PRN (03:50)
[2024-01-04] MEDS ORDERED: fentANYL 2 MCG/ML BUPIVacaine 0.125%-NSS 100ML BAG EPI PRN (03:50)
[2024-01-04] MEDS ORDERED: SODIUM CHLORIDE 0.9% PF INJ 10 ML VIAL EPI PRN (03:50)
[2024-01-04] MEDS ORDERED: ePHEDrine sulfate 50 MG/ML AMP IV PRN (03:50)
--- NOTE | 2024-01-04 03:52 | Anesthesiology Consultation ---
Date of Service January 04, 2024 Assessment & Plan Chart Review Chart Review: Patient NOT seen in Pre Admission Testing and Acceptable Risk for Labor Epidural Consults Requested none ASA ASA2 Proposed Anesthesia Anesthesia Type: Labor Epidural Risk / Benefits Reviewed With: PT / POA / Parent / Guardian, Accepts Plan and Informed Consent Obtained History Height/Weight Height: 5 ft 2 in Weight: 83.915 kg Allergies Allergy/AdvReac Type Severity Reaction Status Date / Time No Known Drug Allergies Allergy none Verified 12/29/23 15:28 Medications Home Medications Medication Instructions Recorded Confirmed Last Taken 21-iron fu-folic acid PO 05/06/23 12/29/23 Unknown [ Complete] Active Medications Generic Name Dose Route Start Last Admin Trade Name Freq PRN Reason Stop Dose Admin Lactated Ringer's 1,000 mls @ 125 mls/hr 01/04/24 03:00 01/04/24 03:33 Lr IV 01/05/24 02:59 50 mls/hr .Q8H AMALIA Infusion NPO Date Last Intake of Fluids: 01/04/24 Time Last Intake of Fluids: 03:30 Date Last Intake of Solids: 01/03/24 Time Last Intake of Solids: 17:30 Past Medical History Medical History Spontaneous vaginal delivery 08/2019 [facility] Encounter for pre-operative examination Hx of varicella Exercise / Class Metabolic Activity 1 > 8 Run/Swim/Ski/Tennis Past Family History Family History Mother Hypertension Father Diabetes Grandfather (Paternal) Prostate cancer Grandfather (Maternal) Prostate cancer Denies family history of Ovarian cancer Myocardial infarction Breast cancer Colorectal cancer Past Surgical History Surgical History S/P wisdom tooth extraction Past Anesthesia History No Hx of Anesthesia Complications and No Family Hx of Anesthesia Complications History of PONV No Hx of PONV and No Hx of Motion Sickness Social History Smoking Status: Never smoker Do You Dip or Chew Tobacco: No Hx Alcohol Use: No (light) Hx Substance Use: No substance use type: does not use Review of Systems ROS Unobtainable: All systems reviewed & are unremarkable except as noted in HPI & below Physical Exam Vital Signs Last Vital Signs Temp 36.8 C 01/04/24 03:15 Pulse 91 H 01/04/24 02:33 Resp 18 01/04/24 03:15 BP 124/84 01/04/24 02:33 ENMT Mouth: no TMJ abnormality Thyromental Distance: > or= 3.5 Finger Breadths Mallampati Class: II Neck normal visual inspection and trachea midline; neck extension not limited Respiratory normal respiratory effort Auscultation: lungs clear to auscultation bilaterally Cardiovascular Rate/Rhythm: regular rate and regular rhythm Heart Sounds: no murmur Musculoskeletal Spine: normal cervical ROM Extremities: full ROM of extremities Neurologic moves all extremities Psychiatric Orientation: alert and oriented x 3 Testing Laboratory Results 01/04/24 02:58
[2024-01-04] MEDS: fentANYL 2 MCG/ML BUPIVacaine 0.125%-NSS 100ML BAG ONE (04:20)
--- NOTE | 2024-01-04 04:27 | Labor Progress Brief Note ---
Date of Service January 04, 2024 Subjective comfortable with epidural Assessment & Plan (1) Normal labor: Plan will see how arom helps pattern. fhts categ 1. pit aug if needed. Admission and Anticipated Discharge Date Admission Date: January 04, 2024 Physical Exam Constitutional: WD/WN, vitals as above Genitourinary: Manual OB Exam: + cervical dilation 6 cm, + cervical effacement 60%, + station -2 and + amniotic fluid (arom) clear OB Exam Monitor Tracing: + external FHT monitor used, + external uterine monitor used (q3), + category I and + normal FHT variability Results & Data Vital Signs (Past 12 Hours) Vital Signs Temp Pulse Resp BP Pulse Ox 01/04/24 04:22 102 H 111/73 01/04/24 04:20 110 H 91 01/04/24 04:19 93 01/04/24 04:19 107 H 01/04/24 04:19 93 H 113/81 01/04/24 04:15 112 H 116/84 01/04/24 04:14 97 H 92 01/04/24 04:12 94 H 124/72 01/04/24 04:11 95 H 90 01/04/24 04:09 82 94 01/04/24 04:04 83 93 01/04/24 03:59 95 01/04/24 03:59 81 01/04/24 03:59 91 H 93 01/04/24 03:15 98.2 F 18 01/04/24 02:33 91 H 124/84 Coding Level of Care Code None Diagnoses Normal labor O80; Z37.9
[2024-01-04] MEDS: fentaNYL citrate PF 100 MCG/2 ML VIAL ONE (04:28)
[2024-01-04] MEDS: ePHEDrine sulfate 50 MG/ML AMP ONE (04:30)
[2024-01-04] MEDS: LIDOCAINE 2%/EPINEPHRINE 1:200,000 20 ML PF ONE (04:31)
[2024-01-04] MEDS: BUPIVACAINE 0.25% PF 30 ML VIAL ONE (04:31)
--- NOTE | 2024-01-04 04:32 | Obstetrical Progress Note ---
Date of Service January 04, 2024 Assessment & Plan (1) Normal labor: Plan exam as noted above. Admission and Anticipated Discharge Date Admission Date: January 04, 2024 Subjective neglected to put in exam in Physical Exam Constitutional: WD/WN, vitals as above Respiratory: normal respiratory effort, lungs clear to auscultation Cardiovascular: Rate/Rhythm: regular rate and regular rhythm Gastrointestinal (Abdomen): soft gravid nt efw 8-9# Musculoskeletal: no edema nontender calves Neurologic: grossly normal Psychiatric: A+Ox3, euthymic affect Results & Data Vital Signs (Past 12 Hours) Vital Signs Temp Pulse Resp BP Pulse Ox 01/04/24 04:29 70 84/54 L 92 01/04/24 04:28 61 89/54 L 91 01/04/24 04:24 56 L 94 01/04/24 04:22 102 H 111/73 01/04/24 04:20 110 H 91 01/04/24 04:19 93 01/04/24 04:19 107 H 01/04/24 04:19 93 H 113/81 01/04/24 04:15 112 H 116/84 01/04/24 04:14 97 H 92 01/04/24 04:12 94 H 124/72 01/04/24 04:11 95 H 90 01/04/24 04:09 82 94 01/04/24 04:04 83 93 01/04/24 03:59 95 01/04/24 03:59 81 01/04/24 03:59 91 H 93 01/04/24 03:15 98.2 F 18 01/04/24 02:33 91 H 124/84 PG Care Time/CCT Total # of Minutes Spent Total Time Spent with Patient: Total time spent is greater than 50% in coordination of care (as documented) at patient's floor/unit and/or counseling patient: Coding Level of Care Code None Diagnoses Normal labor O80; Z37.9
[2024-01-04] MEDS: SODIUM CHLORIDE 0.9% PF INJ 10 ML VIAL ONE (04:44)
[2024-01-04] MEDS: BUPIVACAINE 0.25% PF 30 ML VIAL EPI STA (04:45)
[2024-01-04] MEDS: LIDOCAINE 2%/EPINEPHRINE 1:200,000 20 ML PF EPI STA (04:45)
[2024-01-04] MEDS: fentaNYL citrate PF 100 MCG/2 ML VIAL EPI STA (04:45)
[2024-01-04] MEDS: SODIUM CHLORIDE 0.9% PF INJ 10 ML VIAL EPI STA (05:01)
[2024-01-04] MEDS ORDERED: OXYTOCIN 30 UNITS/NSS 30 UNITS/500 ML BAG IV PRN ×2 (06:59→08:30)
[2024-01-04] MEDS: OXYTOCIN 30 UNITS/NSS 30 UNITS/500 ML BAG IV PRN (07:44)
[2024-01-04] MEDS: miSOPROStoL 200 MCG TAB ONE (08:00)
--- NOTE | 2024-01-04 08:03 | Delivery Summary ---
Vaginal Delivery Summary Date of Service January 04, 2024 Vaginal Delivery Summary and 2nd Degree LAC The patient dilated to complete and pushed to deliver a viable male infant Apgars 8 and 9 via over 2nd degree perineal laceration. Mouth and nose bulb suctioned at perineum. Shoulders and body delivered with ease. was vigorous and crying at . Cord clamped at 30 seconds of life and to maternal abdomen where the cord was then doubly clamped and cut. Of note with delivery immediate large gush of bloody fluid followed by clots most consistent with abruption noted. Placenta delivered spontaneously and intact, three-vessel cord with another extruding clot. Hemostasis not achieved with dilute pitocin and uterine massage and drainage of the bladder for approximately 100 cc under sterile conditions. Cytotec 1000mcg placed rectally. Laceration repaired in routine fashion with 3-0 vicryl. Cervix and sulci intact. QBL 532 cc. Mother and baby stable in recovery. [facility] Vaginal Delivery Charge Delivery Type Details: and 2nd Degree LAC
[2024-01-04] MEDS ORDERED: HYDROCORTISONE ACETATE 25 MG SUPP PR PRN (08:30)
[2024-01-04] MEDS ORDERED: oxyCODONE/ACETAMINOPHEN 5mg/325mg TAB PO PRN (08:30)
[2024-01-04] MEDS ORDERED: BENZOCAINE 20% SPRY 85 APPLN/85 GM CAN EXT PRN (08:30)
[2024-01-04] MEDS ORDERED: DIPHTHER/TETAN/PERTUS Vaccine (Tdap, Adol/Adult) 0.5mL IM ONE (08:30)
--- NOTE | 2024-01-04 09:01 | Anesthesiology Progress Note ---
Date of Service January 04, 2024 Anesthesia Post Procedure Vital Signs Vital Signs: Temp Pulse Resp BP Pulse Ox 01/04/24 08:51 82 103/72 01/04/24 08:36 83 100/67 01/04/24 08:21 92 H 109/62 01/04/24 08:06 75 92/57 L 01/04/24 07:59 83 93 01/04/24 07:54 88 94 01/04/24 07:51 91 H 80/45 L 01/04/24 07:49 95 01/04/24 07:49 80 01/04/24 07:49 73 80/44 L 01/04/24 07:44 80 95 01/04/24 07:39 130 H 95 01/04/24 07:37 120 H 113/75 01/04/24 07:34 129 H 96 01/04/24 07:31 20 01/04/24 07:31 20 01/04/24 07:29 105 H 93 01/04/24 07:24 108 H 93 01/04/24 07:22 102 H 115/81 01/04/24 07:19 110 H 93 01/04/24 07:14 89 94 01/04/24 07:09 92 01/04/24 07:09 101 H 01/04/24 07:09 82 91 01/04/24 07:07 36.8 C 98 H 20 114/74 01/04/24 07:04 106 H 93 01/04/24 07:00 18 01/04/24 07:00 18 01/04/24 07:00 91 01/04/24 07:00 91 H 01/04/24 07:00 88 106/75 01/04/24 06:59 88 92 01/04/24 06:54 83 94 01/04/24 06:49 101 H 92 01/04/24 06:44 79 94 01/04/24 06:39 101 H 95 01/04/24 06:36 101 H 114/76 01/04/24 06:34 79 95 01/04/24 06:29 85 94 01/04/24 06:24 81 92 01/04/24 06:23 83 111/69 01/04/24 06:19 103 H 93 01/04/24 06:14 89 93 01/04/24 06:09 88 93 01/04/24 06:06 78 115/71 01/04/24 06:04 87 93 01/04/24 06:00 18 01/04/24 06:00 18 01/04/24 05:59 95 H 94 01/04/24 05:54 92 H 93 01/04/24 05:52 86 107/65 01/04/24 05:49 86 94 01/04/24 05:44 77 95 01/04/24 05:39 84 94 01/04/24 05:36 78 104/59 L 01/04/24 05:34 79 94 01/04/24 05:30 18 01/04/24 05:30 18 01/04/24 05:29 74 96 01/04/24 05:24 90 94 01/04/24 05:22 67 98/55 L 01/04/24 05:19 78 93 01/04/24 05:14 78 96 01/04/24 05:09 89 95 01/04/24 05:07 93 H 116/77 01/04/24 05:04 107 H 94 01/04/24 05:00 18 01/04/24 05:00 37.0 C 18 01/04/24 04:59 116 H 95 01/04/24 04:54 80 94 01/04/24 04:51 110 H 112/78 01/04/24 04:49 106 H 93 01/04/24 04:44 94 H 94 01/04/24 04:39 100 H 93 01/04/24 04:34 93 01/04/24 04:34 65 01/04/24 04:34 64 105/69 01/04/24 04:30 80 91/57 L 01/04/24 04:29 70 84/54 L 92 01/04/24 04:28 61 89/54 L 91 01/04/24 04:24 56 L 94 01/04/24 04:22 102 H 111/73 01/04/24 04:20 110 H 91 01/04/24 04:19 93 01/04/24 04:19 107 H 01/04/24 04:19 93 H 113/81 01/04/24 04:15 112 H 116/84 01/04/24 04:14 97 H 92 01/04/24 04:12 94 H 124/72 01/04/24 04:11 95 H 90 01/04/24 04:09 82 94 01/04/24 04:04 83 93 01/04/24 03:59 95 01/04/24 03:59 81 01/04/24 03:59 91 H 93 01/04/24 03:15 36.8 C 18 01/04/24 02:33 91 H 124/84 Transfer of Care Handoff Completed per policy Notes Mental Status: alert / awake / arousable and participated in evaluation Patient Amnestic to Procedure: No Nausea / Vomiting: adequately controlled Pain: adequately controlled Airway Patency, RR, SpO2: stable & adequate BP & HR: stable & adequate Hydration State: stable & adequate Neuraxial Anesthesia: was administered and sensory block is resolving Anesthetic Complications: no major complications apparent and Pt Satisfied with anesthetic care
[2024-01-04] MEDS: miSOPROStoL 200 MCG TAB PR ONE (09:41)
[2024-01-04] MEDS: IBUPROFEN 600 MG TAB PO PRN (14:00)
[2024-01-04] MEDS: ACETAMINOPHEN 325 MG TAB PO PRN (19:48)
[2024-01-04] MEDS: DOCUSATE SODIUM 100 MG CAP PO SCH (20:49)
[2024-01-05 03:37] VITALS: O2SAT 97
--- NOTE | 2024-01-05 05:35 | Obstetrical Progress Note ---
Date of Service January 05, 2024 Assessment & Plan (1) Normal labor: (2) care and examination: Plan PPD1: Stable, continue routine care, OOB and ambulation, diet as tolerated Rh+, gbs -, ri, vitals and H&H noted Plan for d/c after baby's circumcision Admission and Anticipated Discharge Date Admission Date: January 04, 2024 Supervising Physician Co-Signing Physician Notes Resident Physician Supervision Note: I interviewed and examined the patient. Discussed with Dr. Washburn and agree with findings and plan as documented in the note. Any exceptions or clarifications are listed here: PPD#1 doing well. Desires DC home if baby is able to be discharged. Documented By: Tammie Romero, DO Ahumada Kristine is a 38 y/o female who is PPD#1 following at term, c/b abruption. Mild abdominal cramping, mostly when breast-feeding Is voiding, ambulating normally No issues after meal, but reports feeling hungry and somewhat dizzy when standing, d/t 12h between meals Having minimal lochia Review of Systems 2 Constitutional: no fever, no chills and no sweats Respiratory: no dyspnea Cardiovascular: no chest pain, no palpitations and no calf pain Genitourinary: no dysuria Neurologic: no generalized weakness, no dizziness and no headache(s) Physical Exam 2 Physical Exam: General: Alert, oriented. No acute distress. Cardiac: Regular rate and rhythm, no murmurs, rubs, or gallops. Respiratory: Clear to auscultation bilaterally, no wheezes/rales/rhonchi. No increased work of breathing. Symmetrical chest rise. No respiratory distress. Abdomen: Soft, nontender, nondistended. Bowel sounds present. Uterus: Uterine fundus firm, nontender Lower extremities: No lower extremity edema or swelling. No deep calf pain. Results & Data Vital Signs (Past 12 Hours) Vital Signs Temp Pulse Resp BP Pulse Ox O2 Del Method 01/05/24 03:35 36.5 C 88 18 116/77 97 Room Air 01/05/24 00:15 37.1 C 89 18 121/80 96 Room Air 01/04/24 19:50 36.8 C 82 20 113/78 95 Room Air Laboratory Results 01/05/24 05:48 Resident Activity Tracking Resident Involvement: Resident Care Provided Care Provided: Adult Hospital Medicine
[2024-01-05 06:25] LABS: Hematocrit (blood only) 30.9 % (37.0-47.0); Hemoglobin 10.3 g/dl (12.0-16.0)
[2024-01-05] MEDS: PRENATAL VITAMIN 1 TAB PO SCH (09:04)
[2024-01-05 16:43] VITALS: BP 121/85; PULSE 94; RESP 20; TEMP 98.1
[2024-01-05] MEDS ORDERED: bisacodyL 5 MG TABEC PO SCH (20:00)
== END 2024-01-05 17:30 | disposition home or self-care (01) | DRG 805 ==
LOC: OPB 02:09 → 4S1 02:11 → 4E2 11:57